=== PATIENT | female | born 2000 | race Caucasian/White ===

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

== ENCOUNTER 2019-04-30 20:17 | Emergency (ER) | payer OTHER ==
[~2019-04-30] VITALS: Ht 154.5 cm; Wt 65.9 kg
[~2019-04-30 20:17] MED LIST changes: +CEFU500T63 PO; +OMEP-280 PO; -OMEP20CA12 PO
--- NOTE | 2019-04-30 21:40 | ED Cough/URI ---
General Chief Complaint: Cough/Cold/Flu Symptoms Stated Complaint: CONGESTED,COUGH Nursing Triage Note: PT AMB TO [facility] 8 WITH COMPLAINT COUGH, CONGESTION FOR OVER A MONTH. STATES SHE WAS RECENTLY AROUND HER DAD WHO HAD THE FLU. STATES IS CONCERNED THAT SHE HAS CONTRACTED THE FLU. Sepsis Screen: No Definite Risk History of Present Illness Date Seen by Provider: Apr 30, 2019 Time Seen by Provider: 21:30 Initial Comments 19-year-old female reports congestion for approximately one month, increased sinus pressure over the last 2-3 days. She did not receive a flu vaccine this. Timing/Duration: intermittent Severity/Quality: dry cough Prior Episodes/Possible Cause: no prior episodes Associated Symptoms: cough, facial pain, nasal congestion Allergies and Home Medications Allergies Coded Allergies: amoxicillin (Verified Allergy, Unknown, 08/20/18) clavulanic acid (Verified Allergy, Unknown, 08/20/18) clindamycin (Verified Allergy, Unknown, 07/14/17) doxycycline (Verified Allergy, Unknown, 07/14/17) Home Medications Cefuroxime Axetil 500 Mg Tablet, 500 MG PO BID Prescribed by: PRINCE GIBSON on 08/20/18 0017 Patient Home Medication List Home Medication List Reviewed: Yes Review of Systems Review of Systems Constitutional: no symptoms reported, see HPI Respiratory: see HPI, cough All Other Systems Reviewed Negative Unless Noted: Yes Past Olmxtrq-Bnadxn-Rpovth Hx Past Med/Social Hx: Reviewed Nursing Past Med/Soc Hx Patient Social History Alcohol Use: Denies Use Recreational Drug Use: No Smoking Status: Never a Smoker 2nd Hand Smoke Exposure: No Recent Foreign Travel: No Contact w/Someone Who Travel: No Recent Infectious Disease Expo: No Recent Hopitalizations: No Immunizations Up To Date Tetanus Booster (TDap): Less than 5yrs PED Vaccines UTD: Yes Seasonal Allergies Seasonal Allergies: No Past Medical History Surgeries: Yes (RIGHT BREAST BIOPSY/BENIGN LUMPECTOMY) Adenoidectomy, Breast, Lumpectomy, Tonsillectomy Respiratory: No Cardiac: No Neurological: Yes (history of tickborne disease, elevated tularemia titer 2016) Reproductive Disorders: No Female Reproductive Disorders: Denies Sexually Transmitted Disease: No HIV/AIDS: No Genitourinary: No Gastrointestinal: No Musculoskeletal: No Endocrine: No HEENT: No Loss of Vision: Denies Hearing Impairment: Denies Cancer: No Psychosocial: Yes Anxiety Integumentary: No Blood Disorders: No Adverse Reaction/Blood Tranf: No (N/A) Family Medical History Hypertension GRANDMOTHER,MATERNAL Thyroid disease 19 MOTHER No Pertinent Family Hx Physical Exam Vital Signs - First Documented 04/30/19 20:51 Temp 37.0 Pulse 92 Resp 20 B/P (MAP) 134/87 (103) Pulse Ox 97 O2 Delivery Room Air Capillary Refill : Less Than 3 Seconds Height: 5'1.00" Weight: 150lbs. 0.0oz. 68.675514zp; 27.00 BMI Method:Stated General Appearance: WD/WN, no apparent distress HEENT: PERRL/EOMI, normal ENT inspection, TMs normal, pharynx normal, other (trace frontal sinus tenderness) Neck: non-tender, full range of motion, supple, normal inspection Respiratory: chest non-tender, lungs clear, normal breath sounds Cardiovascular: normal peripheral pulses, regular rate, rhythm, no murmur Extremities: normal range of motion, non-tender, normal inspection, no pedal edema, no calf tenderness Neurologic/Psychiatric: no motor/sensory deficits, alert, normal mood/affect, oriented x 3 Skin: normal color, warm/dry Progress/Results/Core Measures Suspected Sepsis Recent Fever Within 48 Hours: No Infection Criteria Present: None New/Unexplained Altered Menta: No Sepsis Screen: No Definite Risk SIRS Temperature: Pulse: 92 Respiratory Rate: 20 Blood Pressure 134 /87 Mean: 103 Results/Orders Micro Results Microbiology 04/30/19 Influenza Types A,B Antigen (MADINA) - Final, Complete My Orders Orders - YINA HATHAWAY Influenza A And B Antigens (04/30/19 20:29) Vital Signs/I&O 04/30/19 04/30/19 20:51 21:45 Temp 37.0 37.0 Pulse 92 92 Resp 20 20 B/P (MAP) 134/87 (103) 134/87 (103) Pulse Ox 97 97 O2 Delivery Room Air Capillary Refill : Less Than 3 Seconds Blood Pressure Mean: 103 Departure Impression Primary Impression: Viral upper respiratory illness Disposition: 01 HOME, SELF-CARE Condition: Improved Departure-Patient Inst. Decision time for Depature: 21:40 Referrals: [facility] (PCP/Family) Primary Care Physician Patient Instructions: Cough, Adult (DC), Viral Upper Respiratory Infection, Adult (DC) Add. Discharge Instructions: Increase fluid intake., 16 ounces every 2 hours while awake. Taking multivitamin. Obtain a flu vaccine. Establish care with a primary care provider, follow-up with them if symptoms are not improving or worsen. Alternate between Tylenol 650 mg and ibuprofen 600 mg every 4 hours. Use Afrin nasal spray for 3 days, as directed on the box, then discontinue. Use a Delores pot or Shun Med Sinus irrigation, every 2-4 for sinus congestion. Return to the emergency department for new, urgent health care needs. All discharge instructions reviewed with patient and/or family. Voiced understanding. YINA HATHAWAY Apr 30, 2019 21:40
[2019-04-30 21:45] VITALS: BP 134/87
== END 2019-04-30 21:45 | disposition home or self-care (01) ==
LOC: EDUNIT# 20:17 → ER 20:19
DX: J06.9 Acute upper respiratory infection, unspecified (principal); F41.9 Anxiety disorder, unspecified; Z88.1 Allergy status to other antibiotic agents; Z90.89 Acquired absence of other organs; Z82.49 Family history of ischemic heart disease and other diseases of the circulatory system
CPT/HCPCS: 87804

== ENCOUNTER 2019-05-08 18:20 | Emergency (ER) | payer OTHER ==
[~2019-05-08] VITALS: Ht 154 cm; Wt 70.4 kg
[2019-05-08] MEDS ORDERED: PRD20T PO (20:12)
[2019-05-08] MEDS ORDERED: CEFD300C3 PO (20:12)
--- NOTE | 2019-05-08 20:12 | ED Cough/URI ---
General Chief Complaint: Fever-Adult/Adol Stated Complaint: CONGESTED COUGH,FEVER Nursing Triage Note: FEVER, NAUSEA/VOMITING, AND MIGRAINE Sepsis Screen: No Definite Risk Source: patient Exam Limitations: no limitations History of Present Illness Date Seen by Provider: May 08, 2019 Time Seen by Provider: 19:40 Initial Comments To ER with reports of cough and runny nose sore throat for about a month taken no medications for it. She also reports nausea. Timing/Duration: constant Severity/Quality: productive cough Associated Symptoms: cough, fever/chills, nasal drainage, shortness of breath, sore throat Allergies and Home Medications Allergies Coded Allergies: amoxicillin (Verified Allergy, Unknown, 08/20/18) clavulanic acid (Verified Allergy, Unknown, 08/20/18) clindamycin (Verified Allergy, Unknown, 07/14/17) doxycycline (Verified Allergy, Unknown, 07/14/17) Home Medications Cefdinir 300 Mg Capsule, 300 MG PO BID Prescribed by: MARCELO LOUIS on 05/08/192011 Cefuroxime Axetil 500 Mg Tablet, 500 MG PO BID Prescribed by: PRINCE GIBSON on 08/20/18 0017 Prednisone 20 Mg Tab, 40 MG PO DAILY Prescribed by: MARCELO LOUIS on 05/08/192011 Patient Home Medication List Home Medication List Reviewed: Yes Review of Systems Review of Systems Constitutional: see HPI EENTM: see HPI Respiratory: no symptoms reported Cardiovascular: no symptoms reported Genitourinary: no symptoms reported Musculoskeletal: no symptoms reported Skin: no symptoms reported Psychiatric/Neurological: No Symptoms Reported Hematologic/Lymphatic: No Symptoms Reported Immunological/Allergic: no symptoms reported Past Caugtmp-Rdbsyg-Jlafwv Hx Patient Social History Alcohol Use: Occasionally Uses Recreational Drug Use: No Smoking Status: Never a Smoker 2nd Hand Smoke Exposure: No Recent Foreign Travel: No Contact w/Someone Who Travel: No Recent Infectious Disease Expo: No Recent Hopitalizations: No Physical Abuse: No Sexual Abuse: No Mistreated: No Fear: No Immunizations Up To Date Tetanus Booster (TDap): Less than 5yrs PED Vaccines UTD: Yes Seasonal Allergies Seasonal Allergies: No Past Medical History Surgeries: Yes (RIGHT BREAST BIOPSY/BENIGN LUMPECTOMY) Adenoidectomy, Breast, Lumpectomy, Tonsillectomy Respiratory: No Cardiac: No Neurological: Yes (history of tickborne disease, elevated tularemia titer 2016) Reproductive Disorders: No Female Reproductive Disorders: Denies Sexually Transmitted Disease: No HIV/AIDS: No Genitourinary: No Gastrointestinal: No Musculoskeletal: No Endocrine: No HEENT: No Loss of Vision: Denies Hearing Impairment: Denies Cancer: No Psychosocial: Yes Anxiety Integumentary: No Blood Disorders: No Adverse Reaction/Blood Tranf: No (N/A) Family Medical History Hypertension GRANDMOTHER,MATERNAL Thyroid disease 19 MOTHER No Pertinent Family Hx Physical Exam Vital Signs - First Documented 05/08/19 18:41 Temp 37.2 Pulse 88 Resp 16 B/P (MAP) 138/85 (102) Pulse Ox 98 Capillary Refill : Less Than 3 Seconds Height: 5'1.00" Weight: 150lbs. 0.0oz. 68.971703xc; 29.00 BMI Method:Stated General Appearance: WD/WN, no apparent distress Eyes: Bilateral Eye Normal Inspection, Bilateral Eye PERRL, Bilateral Eye EOMI HEENT: PERRL/EOMI, normal ENT inspection, TMs normal Neck: non-tender, full range of motion, lymphadenopathy (R), lymphadenopathy (L) Respiratory: no respiratory distress, no accessory muscle use Cardiovascular: regular rate, rhythm, no murmur Gastrointestinal: normal bowel sounds, non tender, soft Extremities: normal range of motion, non-tender Neurologic/Psychiatric: alert, normal mood/affect, oriented x 3 Skin: normal color, warm/dry Progress/Results/Core Measures Suspected Sepsis Recent Fever Within 48 Hours: Yes Infection Criteria Present: Suspected New Infection New/Unexplained Altered Menta: No Sepsis Screen: No Definite Risk SIRS Temperature: Pulse: 88 Respiratory Rate: 16 Laboratory Tests 05/08/19 20:15: White Blood Count 7.1 Blood Pressure 138 /85 Mean: 102 Laboratory Tests 05/08/19 20:15: Creatinine 0.75, Platelet Count 338 Results/Orders Lab Results Laboratory Tests Test 05/08/19 19:41 05/08/19 20:15 Range/Units Urine Test NEGATIVE NEGATIVE White Blood Count 7.1 4.3-11.0 10^3/uL Red Blood Count 4.50 4.35-5.85 10^6/uL Hemoglobin 12.1 11.5-16.0 G/DL Hematocrit 37 35-52 % Mean Corpuscular Volume 83 80-99 FL Mean Corpuscular Hemoglobin 27 25-34 PG Mean Corpuscular Hemoglobin Concent 33 32-36 G/DL Red Cell Distribution Width 13.3 10.0-14.5 % Platelet Count 338 130-400 10^3/uL Mean Platelet Volume 9.1 7.4-10.4 FL Neutrophils (%) (Auto) 41 L 42-75 % Lymphocytes (%) (Auto) 47 H 12-44 % Monocytes (%) (Auto) 10 0-12 % Eosinophils (%) (Auto) 1 0-10 % Basophils (%) (Auto) 0 0-10 % Neutrophils # (Auto) 2.9 1.8-7.8 X 10^3 Lymphocytes # (Auto) 3.4 1.0-4.0 X 10^3 Monocytes # (Auto) 0.7 0.0-1.0 X 10^3 Eosinophils # (Auto) 0.1 0.0-0.3 10^3/uL Basophils # (Auto) 0.0 0.0-0.1 10^3/uL Sodium Level 141 135-145 MMOL/L Potassium Level 3.9 3.6-5.0 MMOL/L Chloride Level 107 98-107 MMOL/L Carbon Dioxide Level 23 21-32 MMOL/L Anion Gap 11 5-14 MMOL/L Blood Urea Nitrogen 12 7-18 MG/DL Creatinine 0.75 0.60-1.30 MG/DL Estimat Glomerular Filtration Rate > 60 BUN/Creatinine Ratio 16 Glucose Level 103 70-105 MG/DL Calcium Level 9.3 8.5-10.1 MG/DL C-Reactive Protein High Sensitivity 3.29 H 0.00-0.50 MG/DL Monoscreen NEGATIVE NEGATIVE Micro Results Microbiology 05/08/19 Influenza Types A,B Antigen (MADINA) - Final, Complete My Orders Orders - MARCELO LOUIS MOLD REPAIRER Cbc With Automated Diff (05/08/19 18:59) Hs C Reactive Protein (05/08/19 18:59) Basic Metabolic Panel (05/08/19 18:59) Hcg,Qualitative Urine (05/08/19 18:59) Influenza A And B Antigens (05/08/19 19:02) Ua Culture If Indicated (05/08/19 20:04) Monotest (05/08/19 20:04) Vital Signs/I&O 05/08/19 18:41 Temp 37.2 Pulse 88 Resp 16 B/P (MAP) 138/85 (102) Pulse Ox 98 Capillary Refill : Less Than 3 Seconds Blood Pressure Mean: 102 Departure Impression Primary Impression: Sinusitis Qualified Codes: J01.10 - Acute frontal sinusitis, unspecified Disposition: HOME, SELF-CARE Condition: Stable Departure-Patient Inst. Decision time for Depature: 20:11 Referrals: [facility] [place] ([place]) Primary Care Physician Patient Instructions: Sinusitis in Adults Add. Discharge Instructions: 1. Medication as directed 2. Follow-up with your doctor next week 3. All discharge instructions reviewed with patient and/or family. Voiced understanding. Scripts Prednisone (Prednisone) 20 Mg Tab 40 MG PO DAILY, #8 TAB 0 Refills Prov: MARCELO LOUIS APRN 05/08/19 Cefdinir (Cefdinir) 300 Mg Capsule 300 MG PO BID, #20 CAP Prov: MARCELO LOUIS APRN 05/08/19 MARCELO LOUIS APRN May 08, 2019 20:12
[2019-05-08 20:21] LABS: BASOPHILS % (AUTO) 0 % (0-10); EOSINOPHILS # (AUTO) 0.1 10^3/uL (0.0-0.3); EOSINOPHILS % (AUTO) 1 % (0-10); HEMATOCRIT 37 % (35-52); HEMOGLOBIN 12.1 G/DL (11.5-16.0); LYMPHOCYTES # (AUTO) 3.4 X 10^3 (1.0-4.0); LYMPHOCYTES % (AUTO) 47 % (12-44); MEAN CORPUSCULAR HEMOGLOBIN 27 PG (25-34); MEAN CORPUSCULAR HGB CONC 33 G/DL (32-36); MEAN CORPUSCULAR VOLUME 83 FL (80-99); MEAN PLATELET VOLUME 9.1 FL (7.4-10.4); MONOCYTES # (AUTO) 0.7 X 10^3 (0.0-1.0); MONOCYTES % (AUTO) 10 % (0-12); NEUTROPHILS # (AUTO) 2.9 X 10^3 (1.8-7.8); NEUTROPHILS % (AUTO) 41 % (42-75); PLATELET COUNT 338 10^3/uL (130-400); RED CELL DISTRIBUTION WIDTH 13.3 % (10.0-14.5); WHITE BLOOD COUNT 7.1 10^3/uL (4.3-11.0)
[2019-05-08 20:41] LABS: BUN/CREATININE RATIO 16; CALCIUM 9.3 MG/DL (8.5-10.1); CARBON DIOXIDE 23 MMOL/L (21-32); CHLORIDE 107 MMOL/L (98-107); CREATININE SERUM 0.75 MG/DL (0.60-1.30); GFR ESTIMATED > 60; GLUCOSE 103 MG/DL (70-105); POTASSIUM 3.9 MMOL/L (3.6-5.0); SODIUM 141 MMOL/L (135-145)
[2019-05-08 20:54] VITALS: BP 123/71
== END 2019-05-08 20:54 | disposition home or self-care (01) ==
LOC: EDUNIT# 18:20 → ER 18:22
DX: J32.9 Chronic sinusitis, unspecified (principal); F41.9 Anxiety disorder, unspecified; Z88.0 Allergy status to penicillin; Z88.1 Allergy status to other antibiotic agents; Z90.89 Acquired absence of other organs
CPT/HCPCS: 36415; 80048; 84703; 85025; 86141; 86308; 87804

== ENCOUNTER 2019-06-06 19:55 | Emergency (ER) | payer OTHER ==
[~2019-06-06] VITALS: Ht 157.5 cm; Wt 69.5 kg
[2019-06-06 20:22] LABS: BASOPHILS % (AUTO) 0 % (0-10); EOSINOPHILS % (AUTO) 0 % (0-10); HEMATOCRIT 35 % (35-52); HEMOGLOBIN 11.4 G/DL (11.5-16.0); LYMPHOCYTES # (AUTO) 1.6 X 10^3 (1.0-4.0); LYMPHOCYTES % (AUTO) 20 % (12-44); MEAN CORPUSCULAR HEMOGLOBIN 27 PG (25-34); MEAN CORPUSCULAR HGB CONC 33 G/DL (32-36); MEAN CORPUSCULAR VOLUME 82 FL (80-99); MEAN PLATELET VOLUME 8.8 FL (7.4-10.4); MONOCYTES # (AUTO) 0.4 X 10^3 (0.0-1.0); MONOCYTES % (AUTO) 5 % (0-12); NEUTROPHILS # (AUTO) 5.9 X 10^3 (1.8-7.8); NEUTROPHILS % (AUTO) 75 % (42-75); PLATELET COUNT 329 10^3/uL (130-400); WHITE BLOOD COUNT 7.9 10^3/uL (4.3-11.0)
[2019-06-06] MEDS ORDERED: NS IV 1000 ML 1,000 ML IV SCH (20:23)
[2019-06-06 20:27] LABS: BILIRUBIN,URINE NEGATIVE (NEGATIVE); CLARITY,URINE CLEAR; COLOR,URINE YELLOW; GLUCOSE, URINE (UA) NEGATIVE (NEGATIVE); KETONES,URINE TRACE (NEGATIVE); LEUKOCYTE ESTERASE ,URINE NEGATIVE (NEGATIVE); NITRITE,URINE NEGATIVE (NEGATIVE); PROTEIN,URINE NEGATIVE (NEGATIVE)
[2019-06-06 20:37] LABS: BACTERIA,URINE TRACE /HPF; RBC,URINE 0-2 /HPF; WBC,URINE 0-2 /HPF
[2019-06-06 20:40] LABS: ALANINE AMINOTRANSFERASE 12 U/L (0-55); ALKALINE PHOSPHATASE 79 U/L (40-136); AMYLASE 44 U/L (25-125); BILIRUBIN,TOTAL 0.3 MG/DL (0.1-1.0); BUN/CREATININE RATIO 12; CALCIUM 9.8 MG/DL (8.5-10.1); CARBON DIOXIDE 25 MMOL/L (21-32); CHLORIDE 105 MMOL/L (98-107); CREATININE SERUM 0.81 MG/DL (0.60-1.30); GFR ESTIMATED > 60; GLUCOSE 101 MG/DL (70-105); LIPASE 17 U/L (8-78); POTASSIUM 3.5 MMOL/L (3.6-5.0); SODIUM 139 MMOL/L (135-145); TOTAL PROTEIN 7.7 GM/DL (6.4-8.2)
[2019-06-06] MEDS ORDERED: CATHETER FLUSH 10 ML SYR IV PRN (20:45)
[2019-06-06] MEDS ORDERED: IOHEXOL 350 MG/ML 100 ML (OMNIPAQUE 350) VIAL IV ONE (20:45)
[2019-06-06] MEDS ORDERED: NS 100 ML (IVPB) BAG IV ONE (20:45)
[2019-06-06] MEDS ORDERED: HOLD METFORMIN - RECEIVED CONTRAST 20 ML VIAL IV SCH (20:45)
--- NOTE | 2019-06-06 21:05 | Diagnostic Imaging Report ---
PROCEDURE: CT abdomen and pelvis with contrast, rule out appendicitis. TECHNIQUE: Multiple contiguous axial images were obtained through the abdomen and pelvis after the administration of intravenous contrast. All CT scans use one or more of the following dose optimizing techniques: automated exposure control, MA and/or KvP adjustment based on patient size and exam type or iterative reconstruction. INDICATION: Right lower quadrant abdominal pain with nausea and emesis. COMPARISON: Study of 12/19/2016. FINDINGS: There is mild low-density throughout the liver, indicating steatosis. No focal hepatic or splenic abnormality is identified. Gallbladder, pancreas and adrenal glands are unremarkable. There is no evidence of renal abnormality. No free fluid is seen within the abdomen. There is mild edema and/or inflammation surrounding the cecum and ascending colon. The appendix is present without evidence of significant inflammation or enlargement. Bladder is unopacified but otherwise unremarkable. No other evidence of adverse change. IMPRESSION: Mild edema and/or inflammation involving the cecum and ascending colon which may represent localized colitis. No definite abscess or pneumoperitoneum is identified. The appendix is visualized without evidence of significant enlargement or inflammation. Dictated by: Dictated on workstation # [id number]
[2019-06-06] MEDS ORDERED: HYOSCYAMINE 0.125 MG (LEVSIN) TAB SL ONE (21:15)
--- NOTE | 2019-06-06 21:16 | ED GU-Female ---
General Chief Complaint: Abdominal/GI Problems Stated Complaint: RT SIDE PAIN Nursing Triage Note: Pt amb to room #9 with c/o lower R side abd discomfort, vaginal bleeding, et chills. Pt reports to have had uterine biopsy performed approx 2wks ago. Pt reports to have followed up with OB on 06/05/19 where transvaginal ultrasound et vaginal exam was performed. Pt reports she was prescribed flagyl and difulcan. Pt reports continued pain that increases in severity after eating and when lifting. Nursing Sepsis Screen: No Definite Risk History of Present Illness Date Seen by Provider: Jun 06, 2019 Time Seen by Provider: 20:05 Initial Comments 19-year-old female who has been followed by Dr. Figueroa for the last few weeks regarding abnormal cervical cells, biopsy and persistent vaginal bleeding. She had a pelvic ultrasound and was started on Flagyl and Diflucan FT days ago. She is to report here if her abdominal pain worsen. She is complaining of right lower quadrant pain. She's had no previous appendectomy or cholecystectomy. She has had limited appetite and increased pain when trying to eat. She has been drinking adequate fluids. She denies any nausea or vomiting. She does report a vaginal bleeding has decreased over the last 24 hours. Timing/Duration: intermittent Severity/Quality: moderate Location: RLQ Radiation: none Associated Symptoms: abdominal pain; No dysuria, No fever/chills, No loss of bladder control, No lower back pain, No nausea/vomiting, No urinary frequency Allergies and Home Medications Allergies Coded Allergies: amoxicillin (Verified Allergy, Unknown, 08/20/18) clavulanic acid (Verified Allergy, Unknown, 08/20/18) clindamycin (Verified Allergy, Unknown, 07/14/17) doxycycline (Verified Allergy, Unknown, 07/14/17) Home Medications Cefdinir 300 Mg Capsule, 300 MG PO BID Prescribed by: MARCELO LOUIS on 05/08/192011 Cefuroxime Axetil 500 Mg Tablet, 500 MG PO BID Prescribed by: PRINCE GIBSON on 08/20/1816 Hyoscyamine Sulfate 0.125 Mg Tab.subl, 0.125 MG SL PRN PRN for PAIN-MODERATE (5- 7) Prescribed by: YINA HATHAWAY on 06/06/192120 Prednisone 20 Mg Tab, 40 MG PO DAILY Prescribed by: MARCELO LOUIS on 05/08/192011 Patient Home Medication List Home Medication List Reviewed: Yes Review of Systems Review of Systems Constitutional: no symptoms reported, see HPI Gastrointestinal: RLQ, see HPI, abdominal pain (RLQ); No diarrhea; loss of appetite; No nausea, No vomiting Genitourinary: see HPI, other : No All Other Systemes Reviewed Negative Unless Noted: Yes Past Eydqeet-Ivuyen-Rbttfg Hx Past Med/Social Hx: Reviewed Nursing Past Med/Soc Hx Patient Social History Alcohol Use: Rarely Uses Recreational Drug Use: No Smoking Status: Never a Smoker 2nd Hand Smoke Exposure: No Recent Foreign Travel: No Contact w/Someone Who Travel: No Recent Infectious Disease Expo: No Recent Hopitalizations: No Immunizations Up To Date Tetanus Booster (TDap): Less than 5yrs PED Vaccines UTD: Yes Seasonal Allergies Seasonal Allergies: No Past Medical History Surgeries: Yes (RIGHT BREAST BIOPSY/BENIGN LUMPECTOMY) Adenoidectomy, Breast, Lumpectomy, Tonsillectomy Respiratory: No Cardiac: No Neurological: Yes (history of tickborne disease, elevated tularemia titer 2016) Reproductive Disorders: No Female Reproductive Disorders: Denies Sexually Transmitted Disease: No HIV/AIDS: No Genitourinary: No Gastrointestinal: No Musculoskeletal: No Endocrine: No HEENT: No Loss of Vision: Denies Hearing Impairment: Denies Cancer: No Psychosocial: Yes Anxiety Integumentary: No Blood Disorders: No Adverse Reaction/Blood Tranf: No (N/A) Family Medical History Hypertension GRANDMOTHER,MATERNAL Thyroid disease 19 MOTHER No Pertinent Family Hx Physical Exam Vital Signs Vital Signs - First Documented 06/06/19 20:00 Temp 36.8 Pulse 100 Resp 17 B/P (MAP) 117/82 (94) Pulse Ox 100 O2 Delivery Room Air Capillary Refill : Less Than 3 Seconds Height, Weight, BMI Height: 5'1.00" Weight: 150lbs. 0.0oz. [id number]; 28.00 BMI Method:Stated General Appearance: WD/WN, no apparent distress HEENT: PERRL/EOMI, normal ENT inspection, TMs normal, pharynx normal Neck: non-tender, full range of motion, supple, normal inspection Cardiovascular: normal peripheral pulses, regular rate, rhythm Respiratory: chest non-tender, lungs clear, normal breath sounds Gastrointestinal: normal bowel sounds, soft; No distended, No guarding, No rebound; tenderness (exquisite tenderness in the right lower and upper quadrant. Negative Jin sign.); No mass; other (negative heel tap and psoas sign.) Extremities: normal range of motion, non-tender, normal inspection, normal capillary refill Neurologic/Psychiatric: no motor/sensory deficits, alert, normal mood/affect, oriented x 3 Progress/Results/Core Measures Suspected Sepsis Recent Fever Within 48 Hours: No Infection Criteria Present: Documented Infection New/Unexplained Altered Menta: No Sepsis Screen: No Definite Risk SIRS Temperature: Pulse: 100 Respiratory Rate: 17 Laboratory Tests 06/06/19 20:11: White Blood Count 7.9 Blood Pressure 117 /82 Mean: 94 Laboratory Tests 06/06/19 20:11: Creatinine 0.81, Platelet Count 329, Total Bilirubin 0.3 Results/Orders Lab Results Laboratory Tests Test 06/06/19 20:11 06/06/19 20:15 Range/Units White Blood Count 7.9 4.3-11.0 10^3/uL Red Blood Count 4.28 L 4.35-5.85 10^6/uL Hemoglobin 11.4 L 11.5-16.0 G/DL Hematocrit 35 35-52 % Mean Corpuscular Volume 82 80-99 FL Mean Corpuscular Hemoglobin 27 25-34 PG Mean Corpuscular Hemoglobin Concent 33 32-36 G/DL Red Cell Distribution Width 13.0 10.0-14.5 % Platelet Count 329 130-400 10^3/uL Mean Platelet Volume 8.8 7.4-10.4 FL Neutrophils (%) (Auto) 75 42-75 % Lymphocytes (%) (Auto) 20 12-44 % Monocytes (%) (Auto) 5 0-12 % Eosinophils (%) (Auto) 0 0-10 % Basophils (%) (Auto) 0 0-10 % Neutrophils # (Auto) 5.9 1.8-7.8 X 10^3 Lymphocytes # (Auto) 1.6 1.0-4.0 X 10^3 Monocytes # (Auto) 0.4 0.0-1.0 X 10^3 Eosinophils # (Auto) 0.0 0.0-0.3 10^3/uL Basophils # (Auto) 0.0 0.0-0.1 10^3/uL Sodium Level 139 135-145 MMOL/L Potassium Level 3.5 L 3.6-5.0 MMOL/L Chloride Level 105 98-107 MMOL/L Carbon Dioxide Level 25 21-32 MMOL/L Anion Gap 9 5-14 MMOL/L Blood Urea Nitrogen 10 7-18 MG/DL Creatinine 0.81 0.60-1.30 MG/DL Estimat Glomerular Filtration Rate > 60 BUN/Creatinine Ratio 12 Glucose Level 101 70-105 MG/DL Calcium Level 9.8 8.5-10.1 MG/DL Corrected Calcium 9.8 8.5-10.1 MG/DL Total Bilirubin 0.3 0.1-1.0 MG/DL Aspartate Amino Transf (AST/SGOT) 11 5-34 U/L Alanine Aminotransferase (ALT/SGPT) 12 0-55 U/L Alkaline Phosphatase 79 40-136 U/L Total Protein 7.7 6.4-8.2 GM/DL Albumin 4.0 3.2-4.5 GM/DL Amylase Level 44 25-125 U/L Lipase 17 8-78 U/L Urine Color YELLOW Urine Clarity CLEAR Urine pH 6.0 5-9 Urine Specific [place] >=1.030 1.016-1.022 Urine Protein NEGATIVE NEGATIVE Urine Glucose (UA) NEGATIVE NEGATIVE Urine Ketones TRACE H NEGATIVE Urine Nitrite NEGATIVE NEGATIVE Urine Bilirubin NEGATIVE NEGATIVE Urine Urobilinogen 0.2 < = 1.0 MG/DL Urine Leukocyte Esterase NEGATIVE NEGATIVE Urine RBC (Auto) 1+ H NEGATIVE Urine RBC 0-2 /HPF Urine WBC 0-2 /HPF Urine Squamous Epithelial Cells 2-5 /HPF Urine Crystals NONE /LPF Urine Bacteria TRACE /HPF Urine Casts NONE /LPF Urine Mucus SMALL H /LPF Urine Culture Indicated NO My Orders Orders - YINA HATHAWAY Ua Culture If Indicated (06/06/19 19:57) Urine Bedside (06/06/19 19:57) Amylase (06/06/19 20:16) Cbc With Automated Diff (06/06/19 20:16) Comprehensive Metabolic Panel (06/06/19 20:16) Lipase (06/06/19 20:16) Ed Iv/Invasive Line Start (06/06/19 20:23) Ns Iv 1000 Ml (Sodium Chloride 0.9%) (06/06/19 20:23) Ct Abd/Pelv W (Appendicitis) (06/06/19 20:32) Iohexol Injection (Omnipaque 350 Mg/Ml 1 (06/06/19 20:45) Received Contrast (Hold Metformin- Contr (06/06/19 20:45) Sodium Chloride Flush (Catheter Flush Sy (06/06/19 20:45) Ns (Ivpb) (Sodium Chloride 0.9% Ivpb Bag (06/06/19 20:45) Hyoscyamine Sl Tablet (Levsin Sl Tablet) (06/06/19 21:15) Rx-Hyoscyamine Tab (Rx-Levsin Sl) (06/06/19 21:29) Medications Given in ED Current Medications Medications Dose Ordered Sig/Brittney Route Start Time Stop Time Status Last Admin Dose Admin Hyoscyamine Sulfate 0.125 mg ONCE ONCE SL 06/06/19 21:15 06/06/19 21:16 DC 06/06/19 21:25 0.125 MG Iohexol 100 ml ONCE ONCE IV 06/06/19 20:45 06/06/19 20:46 DC 06/06/19 20:48 87 ML Sodium Chloride 10 ml NEEDED PRN IV 06/06/19 20:45 06/06/19 20:48 10 ML Sodium Chloride 100 ml ONCE ONCE IV 06/06/19 20:45 06/06/19 20:46 DC 06/06/19 20:48 80 ML Vital Signs/I&O 06/06/19 20:00 Temp 36.8 Pulse 100 Resp 17 B/P (MAP) 117/82 (94) Pulse Ox 100 O2 Delivery Room Air Capillary Refill : Less Than 3 Seconds Blood Pressure Mean: 94 Progress Note : Time: 20:05 Progress Note Patient seen and evaluated, will obtain labs, normal liter per IV, will obtain CT to determine if the appendix or mesenteric adenitis or other pathology causing her symptoms. will maintain NPO. 2049 Labs essentially WNL. WBC 7.9. Awaiting CT results. 2099 CT shows colitis in the descending colon, no other significant abnormalities. Will give Levsin SL. 2114 discharge instructions and return precautions reviewed with patient and her parents. All questions answered. Diagnostic Imaging Diagonstic Imaging: CT Comments NAME: АЛЕКСАНДРCAROLYNMARY CHAO REC#: [id number] PT STATUS: REG ER : 2000 PHYSICIAN: YINA HATHAWAY PHYSICIAN OFFICE CLIN ASST ADMIT DATE: 06/06/19/ER Draft Date of Exam:06/06/19 CT ABD/PELV W (APPENDICITIS) PROCEDURE: CT abdomen and pelvis with contrast, rule out appendicitis. TECHNIQUE: Multiple contiguous axial images were obtained through the abdomen and pelvis after the administration of intravenous contrast. All CT scans use one or more of the following dose optimizing techniques: automated exposure control, MA and/or KvP adjustment based on patient size and exam type or iterative reconstruction. INDICATION: Right lower quadrant abdominal pain with nausea and emesis. COMPARISON: Study of 12/19/2016. FINDINGS: There is mild low-density throughout the liver, indicating steatosis. No focal hepatic or splenic abnormality is identified. Gallbladder, pancreas and adrenal glands are unremarkable. There is no evidence of renal abnormality. No free fluid is seen within the abdomen. There is mild edema and/or inflammation surrounding the cecum and ascending colon. The appendix is present without evidence of significant inflammation or enlargement. Bladder is unopacified but otherwise unremarkable. No other evidence of adverse change. IMPRESSION: Mild edema and/or inflammation involving the cecum and ascending colon which may represent localized colitis. No definite abscess or pneumoperitoneum is identified. The appendix is visualized without evidence of significant enlargement or inflammation. Dictated on workstation # [id number] Dict: 06/06/19 2100 Trans: 06/06/192104 [facility] [id number] Interpreted by: EYAD SLTAER MD Electronically signed by: Departure Impression Primary Impression: Colitis Additional Impression: Pain, abdominal, RLQ Disposition: 01 HOME, SELF-CARE Condition: Improved Departure-Patient Inst. Decision time for Depature: 21:15 Referrals: [facility] [place] ([place]/Family) Primary Care Physician NIMESH FIGUEROA MD Patient Instructions: Colitis (DC) Add. Discharge Instructions: Clear liquid diet for the next 12 hours, then bland diet as tolerated. Follow-up with Dr. Figueroa by her primary care provider if symptoms are not improving or worsen. Continue to take the Flagyl as prescribed. Use the Levsin as needed for abdominal pain. You may alternate between Tylenol 650 mg and ibuprofen 600 mg every 4 hours for pain. Rest. Return to the emergency department for new, urgent health care needs. All discharge instructions reviewed with patient and/or family. Voiced understanding. Scripts Hyoscyamine Sulfate (Levsin-Sl) 0.125 Mg Tab.subl 0.125 MG SL PRN PRN for PAIN-MODERATE (5-7), #12 TAB 0 Refills Prov: YINA HATHAWAY 06/06/19 Copy Copies To 1: NIMESH FIGUEROA MD, AMY ARNP Jun 06, 2019 21:16
[2019-06-06] MEDS ORDERED: HYOS0.1283 SL (21:21)
[2019-06-06] MEDS ORDERED: RX-HYOSCYAMINE 0.125 MG SL (LEVSIN) PPK#6 SL STA (21:29)
[2019-06-06] MEDS ORDERED: HYDROcodone/APAP 5 MG/325 MG (LORTAB) TAB PO ONE (21:30)
[2019-06-06 21:49] VITALS: BP 116/78
== END 2019-06-06 21:49 | disposition home or self-care (01) ==
LOC: EDUNIT# 19:55 → ER 19:56
DX: K52.9 Noninfective gastroenteritis and colitis, unspecified (principal); Z88.0 Allergy status to penicillin; Z88.1 Allergy status to other antibiotic agents; Z82.49 Family history of ischemic heart disease and other diseases of the circulatory system
CPT/HCPCS: 36415; 74177; 80053; 81000; 82150; 83690; 84703; 85025

== ENCOUNTER 2020-03-25 21:47 | Emergency (ER) | payer BC, OTHER ==
[~2020-03-25] VITALS: Ht 157.4 cm; Wt 69.3 kg
[~2020-03-25 21:47] MED LIST changes: +HYOS0.1283 SL; -OMEP-280 PO; +OMEP20CA18 PO
[2020-03-25 22:05] VITALS: BP 121/83
--- NOTE | 2020-03-25 22:32 | ED General ---
General Chief Complaint: General Problems/Pain Stated Complaint: SOA/LIGHTHEADED/DIZZY Nursing Triage Note: Pt c/o SOB, dizziness, weakness, and reports seeing gold specks. 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 Nursing Sepsis Screen: No Definite Risk Source of Information: Patient Exam Limitations: No Limitations History of Present Illness Date Seen by Provider: Mar 25, 2020 Time Seen by Provider: 22:14 Initial Comments Patient presents ER by private conveyance with chief complaint that she ate some spaghetti tonight even though she no she has now for gallop allergy and was afraid she might be having allergic reaction. She started experiencing shortness of breath while sitting talking with her friends. She's not having difficulty swallowing, breathing or swelling in her tongue or throat. She says her allergic reactions did not occur this week. She's had no rash or itching. She takes control and her last missed her period ended last week. She is also on Lexapro. Allergies and Home Medications Allergies Coded Allergies: amoxicillin (Verified Allergy, Unknown, 08/20/18) clavulanic acid (Verified Allergy, Unknown, 08/20/18) clindamycin (Verified Allergy, Unknown, 07/14/17) doxycycline (Verified Allergy, Unknown, 07/14/17) Home Medications Cefdinir 300 Mg Capsule, 300 MG PO BID Prescribed by: MARCELO LOUIS on 05/08/192011 Cefuroxime Axetil 500 Mg Tablet, 500 MG PO BID Prescribed by: PRINCE GIBSON on 08/20/18 0017 Hyoscyamine Sulfate 0.125 Mg Tab.subl, 0.125 MG SL PRN PRN for PAIN-MODERATE (5- 7) Prescribed by: YINA HATHAWAY on 06/06/192120 Prednisone 20 Mg Tab, 40 MG PO DAILY Prescribed by: MARCELO LOUIS on 05/08/192011 Patient Home Medication List Home Medication List Reviewed: Yes Review of Systems Review of Systems Constitutional: No chills, No diaphoresis EENTM: No ear discharge, No ear pain Respiratory: No cough, No short of breath Cardiovascular: No chest pain, No palpitations Gastrointestinal: No abdominal pain, No nausea Genitourinary: No discharge, No dysuria All Other Systems Reviewed Negative Unless Noted: Yes Past Yrlurpl-Dztoml-Suebfi Hx Patient Social History Alcohol Use: Occasionally Uses Recreational Drug Use: No 2nd Hand Smoke Exposure: No Recent Foreign Travel: No Contact w/Someone Who Travel: No Recent Infectious Disease Expo: No Recent Hopitalizations: No Physical Abuse: No Sexual Abuse: No Mistreated: No Fear: No Immunizations Up To Date Tetanus Booster (TDap): Less than 5yrs PED Vaccines UTD: Yes Seasonal Allergies Seasonal Allergies: No Past Medical History Surgeries: Yes (RIGHT BREAST BIOPSY/BENIGN LUMPECTOMY) Adenoidectomy, Breast, Lumpectomy, Tonsillectomy Respiratory: No Cardiac: No Neurological: Yes (history of tickborne disease, elevated tularemia titer 2016) Reproductive Disorders: No Female Reproductive Disorders: Denies Sexually Transmitted Disease: No HIV/AIDS: No Genitourinary: No Gastrointestinal: No Musculoskeletal: No Endocrine: No HEENT: No Loss of Vision: Denies Hearing Impairment: Denies Cancer: No Psychosocial: Yes Anxiety Integumentary: No Blood Disorders: No Adverse Reaction/Blood Tranf: No (N/A) Family Medical History Hypertension GRANDMOTHER,MATERNAL Thyroid disease 19 MOTHER No Pertinent Family Hx Physical Exam Vital Signs Vital Signs - First Documented 03/25/20 22:05 Temp 37.2 Pulse 88 Resp 20 B/P (MAP) 121/83 (96) Pulse Ox 99 O2 Delivery Room Air Capillary Refill : Less Than 3 Seconds Height, Weight, BMI Height: 5'1.00" Weight: 150lbs. 0.0oz. [id number]; 27.00 BMI Method:Stated General Appearance: No Apparent Distress, WD/WN Eyes: Bilateral Eye Normal Inspection, Bilateral Eye PERRL, Bilateral Eye EOMI HEENT: PERRL/EOMI, TMs Normal, Normal ENT Inspection, Pharynx Normal, Moist Mucous Membranes Neck: Full Range of Motion, Normal Inspection Respiratory: Lungs Clear, Normal Breath Sounds, No Accessory Muscle Use, No Respiratory Distress Cardiovascular: Regular Rate, Rhythm, No Edema, Normal Peripheral Pulses Neurologic/Psychiatric: Alert, Oriented x3, No Motor/Sensory Deficits Skin: Normal Color, Warm/Dry Progress/Results/Core Measures Suspected Sepsis Recent Fever Within 48 Hours: No Infection Criteria Present: None New/Unexplained Altered Menta: No Sepsis Screen: No Definite Risk SIRS Temperature: Pulse: 88 Respiratory Rate: 20 Blood Pressure 121 /83 Mean: 96 Results/Orders Vital Signs/I&O 12/2/20 22:05 Temp 37.2 Pulse 88 Resp 20 B/P (MAP) 121/83 (96) Pulse Ox 99 O2 Delivery Room Air Capillary Refill : Less Than 3 Seconds Blood Pressure Mean: 96 Progress Note : Time: 22:30 Progress Note Patient has aseptic vital signs and clear lung sounds and no evidence of anaphylaxis. After a short observation period and discussing with the patient we did offer to do more workup but she agrees that this is probably not necessary. We suspect that she is having a little panic related to her fear of an allergic reaction related to eating hamburger tonight. Good return precautions were given. Departure Impression Primary Impression: Anxiety with limited-symptom attacks Disposition: HOME, SELF-CARE Condition: Stable Departure-Patient Inst. Decision time for Depature: 22:31 Referrals: [facility] [place]) Primary Care Physician Patient Instructions: Anxiety, Adult (DC) Add. Discharge Instructions: Take another Benadryl if you're having difficulty sleeping tonight. Return to the ER promptly if you develop swelling in your tongue, throat, difficulty swallowing or worsening shortness of air. All discharge instructions reviewed with patient and/or family. Voiced understanding. RADHA GARRIDO Mar 25, 2020 22:32
== END 2020-03-25 22:35 | disposition home or self-care (01) ==
LOC: EDUNIT# 21:47 → ER 21:48
DX: F41.9 Anxiety disorder, unspecified (principal); Z82.49 Family history of ischemic heart disease and other diseases of the circulatory system; Z88.1 Allergy status to other antibiotic agents; Z79.52 Long term (current) use of systemic steroids
CPT/HCPCS: 99281

== ENCOUNTER 2020-05-06 01:39 | Emergency (ER) | payer BC ==
[~2020-05-06] VITALS: Ht 157 cm; Wt 75.0 kg
[2020-05-06 02:15] LABS: BASOPHILS % (AUTO) 0 % (0-10); EOSINOPHILS # (AUTO) 0.1 10^3/uL (0.0-0.3); EOSINOPHILS % (AUTO) 2 % (0-10); HEMATOCRIT 38 % (35-52); HEMOGLOBIN 12.3 g/dL (11.5-16.0); LYMPHOCYTES % (AUTO) 46 % (12-44); MEAN CORPUSCULAR HEMOGLOBIN 27 pg (25-34); MEAN CORPUSCULAR HGB CONC 32 g/dL (32-36); MEAN CORPUSCULAR VOLUME 85 fL (80-99); MEAN PLATELET VOLUME 9.5 fL (9.0-12.2); MONOCYTES # (AUTO) 0.6 10^3/uL (0.0-1.0); MONOCYTES % (AUTO) 9 % (0-12); NEUTROPHILS # (AUTO) 2.6 10^3/uL (1.8-7.8); NEUTROPHILS % (AUTO) 40 % (42-75); PLATELET COUNT 245 10^3/uL (130-400); WHITE BLOOD COUNT 6.5 10^3/uL (4.3-11.0)
--- NOTE | 2020-05-06 02:27 | ED Cough/URI ---
General Chief Complaint: Cough/Cold/Flu Symptoms Stated Complaint: WEAK,SOB,HARD TO MOVE,POS TEMP,COUGH Nursing Triage Note: COVID + /, C/O GENERALIZED BODY ACHE, SORETHROAT, NASAL CONGESTION X2 WEEKS. REPORTS SOA WORSE TONIGHT X30 MIN. Sepsis Screen: No Definite Risk Source: patient History of Present Illness Date Seen by Provider: May 06, 2020 Time Seen by Provider: 01:55 Initial Comments PT ARRIVES VIA POV FROM HOME C/O GENERALIZED BODY ACHES C/O SORE THROAT C/O NASAL CONGESTION HAS HAD NON-PRODUCTIVE COUGH AND OCCASIONAL SHORTNESS OF BREATH C/O LOSS OF TASTE AND SMELL C/O NAUSEA, NO VOMITING C/O DIARRHEA--X 2 EPISODES TODAY C/O FATIGUE C/O HEADACHE HAS NOT CHECKED TEMP--DOES NOT HAVE A THERMOMETER SYMPTOMS X 2 WEEKS STATES SHORTNESS OF BREATH WORSE FOR THE LAST 30 MINUTES. SEEN AT [facility] 05/05/20 FOR THIS PROBLEM AND TESTED + FOR COVID- 19. FLU TEST WAS NEGATIVE, PER PT. GIVEN RX FOR DECADRON 6 MG X 10 DAYS, AND ZITHROMAX Z-PACK--HAS NOT PICKED UP RX'S PT WAS GIVEN RX FOR ALBUTEROL INHALER ON 04/26/20--STATES IT IS NOT HELPING--DOES NOT HAVE A SPACER WAS GIVEN RX FOR BIAXIN/CLARITHROMYCIN 500 MG BID X 10 DAYS ON 04/30/20--DID NOT TAKE STATES SHE WAS GIVEN RX FOR A COUGH SYRUP, BUT IS NOT HELPING--THIS IS NOT LISTED ON MED RECONCILIATION HAD BEEN SEEN AT BOTH [facility] AND [facility] ON THOSE PRIOR VISITS AND COVID-19 TESTS WERE NEGATIVE THEN. HAS ANOTHER APPOINTMENT TOMORROW AT [facility] FOR RECHECK HAS NOT TAKEN ANYTHING ELSE FOR SYMPTOMS AT ANY TIME NO HISTORY OF RESPIRATORY PROBLEMS OR CHRONIC ILLNESSES LIVES ALONE BOYFRIEND'S BROTHER WAS SICK AT [facility] AND TESTED + FOR COVID-19 SHORTLY AFTER THAT LMP 04/17/20--NORMAL ON OCP'S PCP: [facility] Allergies and Home Medications Allergies Coded Allergies: amoxicillin (Verified Allergy, Unknown, 08/20/18) clavulanic acid (Verified Allergy, Unknown, 08/20/18) clindamycin (Verified Allergy, Unknown, 07/14/17) doxycycline (Verified Allergy, Unknown, 07/14/17) Home Medications Benzonatate 100 Mg Capsule, 200 MG PO TID Prescribed by: PRINCE GIBSON on 05/06/20256 Cefdinir 300 Mg Capsule, 300 MG PO BID Prescribed by: MARCELO LOUIS on 05/08/192011 Cefuroxime Axetil 500 Mg Tablet, 500 MG PO BID Prescribed by: PRINCE GIBSON on 08/20/18 001 Fluticasone Propionate 9.9 Ml [place].susp, 2 SPRAY NS DAILY 2 SPRAYS PER NOSTRIL DAILY X 2 DAYS THEN 1 SPRAY DAILY Prescribed by: PRINCE GIBSON on 05/06/20256 Fluticasone/Salmeterol 1 Each Blst.w.dev, 1 EACH IH BID Prescribed by: PRINCE GIBSON on 05/06/20256 Hyoscyamine Sulfate 0.125 Mg Tab.subl, 0.125 MG SL PRN PRN for PAIN-MODERATE (5-7) Prescribed by: YINA HATHAWAY on 06/06/192120 Loratadine/Pseudoephedrine 1 Each Tab.er.12h, 1 EACH PO BID Prescribed by: PRINCE GIBSON on 05/06/20256 Ondansetron 4 Mg Tab.rapdis, 4 MG PO Q4H Prescribed by: PRINCE GIBSON on 05/06/20256 Prednisone 20 Mg Tab, 40 MG PO DAILY Prescribed by: MARCELO LOUIS on 05/08/192011 Patient Home Medication List Home Medication List Reviewed: Yes Review of Systems Review of Systems Constitutional: see HPI, malaise, weakness EENTM: see HPI, nose congestion, throat pain Respiratory: see HPI, cough, short of breath Cardiovascular: no symptoms reported Gastrointestinal: see HPI; No abdominal pain; diarrhea, loss of appetite, nausea; No vomiting Genitourinary: no symptoms reported Musculoskeletal: see HPI (BODY ACHES) Skin: no symptoms reported; No rash Psychiatric/Neurological: See HPI, Headache Hematologic/Lymphatic: No Symptoms Reported Immunological/Allergic: no symptoms reported Past Msedkyc-Wgihwi-Ndvewt Hx Past Med/Social Hx: Reviewed and Corrections made Patient Social History Alcohol Use: Occasionally Uses Drug of Choice: THC Smoking Status: Never a Smoker 2nd Hand Smoke Exposure: No Recent Infectious Disease Expo: No Recent Hopitalizations: No Immunizations Up To Date Tetanus Booster (TDap): Less than 5yrs PED Vaccines UTD: Yes Seasonal Allergies Seasonal Allergies: No Past Medical History Surgeries: Yes (RIGHT BREAST BIOPSY/BENIGN LUMPECTOMY) Adenoidectomy, Breast, Lumpectomy, Tonsillectomy Respiratory: No Cardiac: No Neurological: Yes (history of tickborne disease, elevated tularemia titer 2016) : No Last Menstrual Period: Apr 17, 2020 Reproductive Disorders: No Female Reproductive Disorders: Denies Sexually Transmitted Disease: No HIV/AIDS: No Genitourinary: No Gastrointestinal: No Musculoskeletal: No Endocrine: No HEENT: No Loss of Vision: Denies Hearing Impairment: Denies Cancer: No Psychosocial: Yes Anxiety Integumentary: No Blood Disorders: No Adverse Reaction/Blood Tranf: No (N/A) Family Medical History Hypertension GRANDMOTHER,MATERNAL Thyroid disease 19 MOTHER No Pertinent Family Hx Physical Exam Vital Signs - First Documented 05/06/20 01:45 Temp 36.4 Pulse 91 Resp 18 B/P (MAP) 146/98 (114) Pulse Ox 98 O2 Delivery Room Air Capillary Refill : Less Than 3 Seconds Height: 5'1.00" Weight: 150lbs. 0.0oz. 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, no motor/sensory deficits, alert, normal mood/affect, oriented x 3 Skin: normal color, warm/dry; No rash Progress/Results/Core Measures Suspected Sepsis Recent Fever Within 48 Hours: No Infection Criteria Present: Documented Infection New/Unexplained Altered Menta: No Sepsis Screen: No Definite Risk SIRS Temperature: Pulse: 91 Respiratory Rate: 18 Laboratory Tests 05/06/20 02:05: White Blood Count 6.5 Blood Pressure 146 /98 Mean: 114 Laboratory Tests 05/06/20 02:05: Creatinine 0.73, Platelet Count 245, Total Bilirubin 0.2 Results/Orders Lab Results Laboratory Tests Test 05/06/20 02:00 05/06/20 02:05 Range/Units Group A Streptococcus Screen NEGATIVE NEGATIVE White Blood Count 6.5 4.3-11.0 10^3/uL Red Blood Count 4.49 3.80-5.11 10^6/uL Hemoglobin 12.3 11.5-16.0 g/dL Hematocrit 38 35-52 % Mean Corpuscular Volume 85 80-99 fL Mean Corpuscular Hemoglobin 27 25-34 pg Mean Corpuscular Hemoglobin Concent 32 32-36 g/dL Red Cell Distribution Width 12.8 10.0-14.5 % Platelet Count 245 130-400 10^3/uL Mean Platelet Volume 9.5 9.0-12.2 fL Immature Granulocyte % (Auto) 2 % Neutrophils (%) (Auto) 40 L 42-75 % Lymphocytes (%) (Auto) 46 H 12-44 % Monocytes (%) (Auto) 9 0-12 % Eosinophils (%) (Auto) 2 0-10 % Basophils (%) (Auto) 0 0-10 % Neutrophils # (Auto) 2.6 1.8-7.8 10^3/uL Lymphocytes # (Auto) 3.0 1.0-4.0 10^3/uL Monocytes # (Auto) 0.6 0.0-1.0 10^3/uL Eosinophils # (Auto) 0.1 0.0-0.3 10^3/uL Basophils # (Auto) 0.0 0.0-0.1 10^3/uL Immature Granulocyte # (Auto) 0.1 0.0-0.1 10^3/uL Sodium Level 140 135-145 MMOL/L Potassium Level 4.1 3.6-5.0 MMOL/L Chloride Level 104 98-107 MMOL/L Carbon Dioxide Level 24 21-32 MMOL/L Anion Gap 12 5-14 MMOL/L Blood Urea Nitrogen 11 7-18 MG/DL Creatinine 0.73 0.60-1.30 MG/DL Estimat Glomerular Filtration Rate > 60 BUN/Creatinine Ratio 15 Glucose Level 100 70-105 MG/DL Calcium Level 8.8 8.5-10.1 MG/DL Corrected Calcium 8.8 8.5-10.1 MG/DL Total Bilirubin 0.2 0.1-1.0 MG/DL Aspartate Amino Transf (AST/SGOT) 19 5-34 U/L Alanine Aminotransferase (ALT/SGPT) 25 0-55 U/L Alkaline Phosphatase 80 40-136 U/L Total Protein 7.1 6.4-8.2 GM/DL Albumin 4.0 3.2-4.5 GM/DL Serum Test, Qualitative NEGATIVE NEGATIVE Monoscreen NEGATIVE NEGATIVE My Orders Orders - PRINCE GIBSON DO Rapid Strep A Screen (05/06/20 02:01) Chest 1 View, Ap/Pa Only (05/06/20 02:01) Cbc With Automated Diff (05/06/20 02:05) Comprehensive Metabolic Panel (05/06/20 02:05) Hcg,Qualitative Serum (05/06/20 02:05) Monotest (05/06/20 02:05) Procalcitonin (Pct) (05/06/20 02:05) Vital Signs/I&O 05/06/20 05/06/20 05/06/20 01:45 01:45 03:00 Temp 36.4 36.5 Pulse 91 91 Resp 18 16 B/P (MAP) 146/98 (114) 113/96 (114) Pulse Ox 98 100 O2 Delivery Room Air Room Air Room Air Capillary Refill : Less Than 3 Seconds Blood Pressure Mean: 114 Progress Note : Progress Note O2 SATS 99-100% ON ROOM AIR PULSE AND BP NORMAL NO DYSPNEA, NO SIGNIFICANT COUGH AND NO HYPOXIA AT ANY TIME DURING ER STAY GIVEN A SPACER AND INSTRUCTED ON USE WITH PT'S OWN ALBUTEROL INHALER--2 PUFFS GIVEN IN ER. Diagnostic Imaging Comments CXR--NO ACUTE PROCESS, PENDING RADIOLOGIST REVIEW Reviewed: Reviewed by Me Departure Impression Primary Impression: COVID-19 virus infection Disposition: 01 HOME, SELF-CARE Condition: Stable Departure-Patient Inst. Referrals: [facility] (PCP/Family) Primary Care Physician Patient Instructions: Preventing the Spread of an Infectious Disease, Coronavirus Disease 2019 (COVID-19) ED Add. Discharge Instructions: LOTS OF CLEAR LIQUIDS--WATER, BROTH, JELLO, GATORADE TYLENOL 1 GRAM/ MOTRIN 800 MG 4 TIMES A DAY FOR PAIN OR FEVER GET YOUR PRESCRIPTIONS FOR DECADRON AND ZITHROMAX FILLED THIS MORNING AND TAKE PRESCRIBED USE ALBUTEROL INHALER 2 PUFFS EVERY 4 HOURS NEEDED FOR BREATHING FOLLOW UP WITH [facility] AND/OR [facility] NEEDED RETURN TO ER IF YOU HAVE SEVERE DIFFICULTY BREATHING QUARANTINE FOR 2 WEEKS All discharge instructions reviewed with patient and/or family. Voiced understanding. Scripts Fluticasone/Salmeterol (Advair 250-50 Diskus) 1 Each Blst.w.dev 1 EACH IH BID, #1 EA Prov: PRINCE GIBSON DO 05/06/20 Fluticasone Propionate (Flonase Allergy Relief) 9.9 Ml [place].susp 2 SPRAY NS DAILY, #1 EACH 2 SPRAYS PER NOSTRIL DAILY X 2 DAYS THEN 1 SPRAY DAILY Prov: PRINCE GIBSON DO 05/06/20 Loratadine/Pseudoephedrine (Claritin-D 12 Hour Tablet) 1 Each Tab.er.12h 1 EACH PO BID, #20 TAB Prov: PRINCE GIBSON DO 05/06/20 Benzonatate (TESSALON PERLES) 100 Mg Capsule 200 MG PO TID, #30 CAP Prov: PRINCE GIBSON DO 05/06/20 Ondansetron (Ondansetron Odt) 4 Mg Tab.rapdis 4 MG PO Q4H for Nausea/Vomiting, #10 TAB Prov: PRINCE GIBSON DO 05/06/20 PRINCE GIBSON DO May 06, 2020 02:27
[2020-05-06 02:44] LABS: CHLORIDE 104 MMOL/L (98-107); POTASSIUM 4.1 MMOL/L (3.6-5.0); SODIUM 140 MMOL/L (135-145)
[2020-05-06 02:46] LABS: CALCIUM 8.8 MG/DL (8.5-10.1)
[2020-05-06 02:47] LABS: GLUCOSE 100 MG/DL (70-105); TOTAL PROTEIN 7.1 GM/DL (6.4-8.2)
[2020-05-06 02:48] LABS: CARBON DIOXIDE 24 MMOL/L (21-32)
[2020-05-06 02:49] LABS: BILIRUBIN,TOTAL 0.2 MG/DL (0.1-1.0)
[2020-05-06 02:50] LABS: ALKALINE PHOSPHATASE 80 U/L (40-136)
[2020-05-06 02:51] LABS: CREATININE SERUM 0.73 MG/DL (0.60-1.30); GFR ESTIMATED > 60
[2020-05-06 02:52] LABS: BUN/CREATININE RATIO 15
[2020-05-06 02:53] LABS: ALANINE AMINOTRANSFERASE 25 U/L (0-55)
[2020-05-06] MEDS ORDERED: ONDA4TAB11 PO (02:57)
[2020-05-06] MEDS ORDERED: BENZ100C18 PO (02:57)
[2020-05-06] MEDS ORDERED: FLUT9.9S NS (02:57)
[2020-05-06] MEDS ORDERED: LORA1TAB59 PO (02:57)
[2020-05-06] MEDS ORDERED: FLUT1DIS26 IH (02:57)
[2020-05-06 03:00] VITALS: BP 113/96
--- NOTE | 2020-05-06 07:57 | Diagnostic Imaging Report ---
INDICATION: Short of air, chest pain. Positive for COVID Upright portable chest shows normal heart size and vascularity. The lungs are clear. There is no effusion or pneumothorax. There is no bony abnormality. IMPRESSION: Normal chest with no change from 12/19/2016. Report was faxed to [facility] by jessica at 7:57am. Dictated by: Dictated on workstation # [id number]
== END 2020-05-06 03:02 | disposition home or self-care (01) ==
LOC: EDUNIT# 01:39 → ER 01:44
DX: U07.1 COVID-19 (principal); Z88.1 Allergy status to other antibiotic agents; Z82.49 Family history of ischemic heart disease and other diseases of the circulatory system; Z79.52 Long term (current) use of systemic steroids
CPT/HCPCS: 36415; 71045; 80053; 84145; 84703; 85025; 86308; 87430

== ENCOUNTER 2020-10-11 01:53 | Emergency (ER) | payer BC ==
[~2020-10-11] VITALS: Ht 157 cm; Wt 77.0 kg
[~2020-10-11 01:53] MED LIST changes: +BENZ100C18 PO; +FLUT1DIS26 IH; +FLUT9.9S NS; +LORA1TAB59 PO; +ONDA4TAB11 PO; -OXYC-471 PO; +OXYC1TAB11 PO
[2020-10-11] MEDS ORDERED: LIDOCAINE 1% INJ 20 ML 20 ML VIAL ONE (02:06)
[2020-10-11] MEDS ORDERED: LIDOCAINE 1% INJ 20 ML 20 ML VIAL INJ ONE (02:15)
--- NOTE | 2020-10-11 02:36 | ED Integumentary General ---
General Stated Complaint: GENITAL CYST Source: patient Exam Limitations: no limitations History of Present Illness Date Seen by Provider: Oct 11, 2020 Time Seen by Provider: 01:56 Initial Comments Patient is a 20-year-old female who presents to the emergency room with a complaint of a "cyst" on her vagina. Patient states that it has been there off and on for about a year intermittently gets larger and smaller. Patient states over the last several days it is gotten bigger and is created such discomfort that she cannot wear underwear. Patient states it is on the right side of her vagina. She denies any history of sexually transmitted infection and states that she was just recently tested at [facility]. She denies fevers, chills, dysuria, urgency or frequency. No abnormal vaginal discharge. All other review of systems reviewed and negative except as stated above. Timing/Duration: week, getting worse Severity: moderate Location: genitalia Possible Cause: no cause identified Associated Symptoms: denies symptoms Allergies and Home Medications Allergies Coded Allergies: amoxicillin (Verified Allergy, Unknown, 08/20/18) clavulanic acid (Verified Allergy, Unknown, 08/20/18) clindamycin (Verified Allergy, Unknown, 07/14/17) doxycycline (Verified Allergy, Unknown, 07/14/17) Home Medications Benzonatate 100 Mg Capsule, 200 MG PO TID Prescribed by: PRINCE GIBSON on 05/06/20256 Cefdinir 300 Mg Capsule, 300 MG PO BID Prescribed by: MARCELO LOUIS on 05/08/192011 Cefuroxime Axetil 500 Mg Tablet, 500 MG PO BID Prescribed by: PRINCE GIBSON on 08/20/18 001 Fluticasone Propionate 9.9 Ml [place].susp, 2 SPRAY NS DAILY 2 SPRAYS PER NOSTRIL DAILY X 2 DAYS THEN 1 SPRAY DAILY Prescribed by: PRINCE GIBSON on 05/06/20256 Fluticasone/Salmeterol 1 Each Blst.w.dev, 1 EACH IH BID Prescribed by: PRINCE GIBSON on 05/06/20256 Hyoscyamine Sulfate 0.125 Mg Tab.subl, 0.125 MG SL PRN PRN for PAIN-MODERATE (5- 7) Prescribed by: YINA HATHAWAY on 06/06/192120 Loratadine/Pseudoephedrine 1 Each Tab.er.12h, 1 EACH PO BID Prescribed by: PRINCE GIBSON on 05/06/20256 Ondansetron 4 Mg Tab.rapdis, 4 MG PO Q4H Prescribed by: PRINCE GIBSNO on 05/06/20256 Prednisone 20 Mg Tab, 40 MG PO DAILY Prescribed by: MARCELO LOUIS on 05/08/192011 Patient Home Medication List Home Medication List Reviewed: Yes Review of Systems Review of Systems Constitutional: see HPI EENTM: no symptoms reported Respiratory: no symptoms reported Cardiovascular: no symptoms reported Gastrointestinal: no symptoms reported Genitourinary: no symptoms reported Musculoskeletal: no symptoms reported Skin: other (Abscess/lesion to the right labia majora) All Other Systems Reviewed Negative Unless Noted: Yes Past Yhhfcjl-Xxyvrl-Idpmmw Hx Patient Social History Drug of Choice: THC 2nd Hand Smoke Exposure: No Recent Hopitalizations: No Immunizations Up To Date Tetanus Booster (TDap): Less than 5yrs PED Vaccines UTD: Yes Seasonal Allergies Seasonal Allergies: No Past Medical History Surgeries: Yes (RIGHT BREAST BIOPSY/BENIGN LUMPECTOMY) Adenoidectomy, Breast, Lumpectomy, Tonsillectomy Respiratory: No Cardiac: No Neurological: Yes (history of tickborne disease, elevated tularemia titer 2016) Reproductive Disorders: No Female Reproductive Disorders: Denies Sexually Transmitted Disease: No HIV/AIDS: No Genitourinary: No Gastrointestinal: No Musculoskeletal: No Endocrine: No HEENT: No Loss of Vision: Denies Hearing Impairment: Denies Cancer: No Psychosocial: Yes Anxiety Integumentary: No Blood Disorders: No Adverse Reaction/Blood Tranf: No (N/A) Family Medical History Hypertension GRANDMOTHER,MATERNAL Thyroid disease 19 MOTHER No Pertinent Family Hx Physical Exam Vital Signs Capillary Refill : General Appearance: WD/WN, no apparent distress Neck: full range of motion Cardiovascular: regular rate, rhythm Respiratory: no respiratory distress, no accessory muscle use Gastrointestinal: non tender, soft Extremities: normal range of motion, normal inspection Neurologic/Psychiatric: alert, normal mood/affect, oriented x 3 Skin: normal color, warm/dry Skin Problem Location: other (Patient has a 2 x 2 centimeter abscess at the inferior portion of the right labia majora. There is no open wound there. No overlying erythema. The lesion is fluctuant.) Skin Problem Character: abscess Procedures/Interventions I&D : Site: Right labia majora Blade Size: 11 I & D Procedure: betadine prep Progress Wound culture obtained Progress/Results/Core Measures Results/Orders My Orders Orders - MOUSTAPHA CAMP MD Lidocaine 1% Inj 20 Ml (Xylocaine 1% Inj (10/11/20 02:15) Wound Culture (10/11/20 02:05) Lidocaine 1% Inj 20 Ml (Xylocaine 1% Inj (10/11/20 02:06) Departure Impression Primary Impression: Labial abscess Disposition: 01 HOME, SELF-CARE Condition: Stable Departure-Patient Inst. Decision time for Depature: 03:00 Referrals: [facility]CECILIA DANGELO,LOCAL PHYSICIAN (PCP) Primary Care Physician Patient Instructions: Boil (DC) Add. Discharge Instructions: Keep the area clean dry and covered for the next 2 to 3 days. You should expect a fair amount of drainage from the area. Take the antibiotics, Bactrim, twice daily for the next 10 days. Finish this course of antibiotics please I have given you a prescription for hydrocodone. Take 1 every 6 hours as needed for severe pain. You can also take imjf-qrl-sjneuca ibuprofen, 3 tablets which is 600 mg every 6-8 hours. Always take ibuprofen with food. Warm soaks in the bathtub will help keep this area drained. If you have increasing pain or swelling to the area increasing redness or fever please come back to the emergency room for reevaluation. You can also follow-up with [facility]. Scripts Hydrocodone/Acetaminophen (Hydrocodone-Acetamin 5-325 mg) 1 Each Tablet 1 TAB PO Q6H PRN for PAIN-MODERATE (5-7), #10 TAB Prov: MOUSTAPHA CAMP MD 10/11/20 Sulfamethoxazole/Trimethoprim (Bactrim Ds Tablet) 1 Each Tablet 1 EACH PO BID, #20 TAB Prov: MOUSTAPHA CAMP MD 10/11/20 MOUSTAPHA CAMP MD Oct 11, 2020 02:36
[2020-10-11] MEDS ORDERED: SULF1TAB35 PO (03:02)
[2020-10-11] MEDS ORDERED: ACHD5005 PO (03:02)
[2020-10-11 03:20] VITALS: BP 135/78
== END 2020-10-11 03:20 | disposition home or self-care (01) ==
LOC: EDUNIT# 01:53 → ER 01:54
DX: N76.4 Abscess of vulva (principal); Z79.52 Long term (current) use of systemic steroids
CPT/HCPCS: 87070; 87205; 99284

== ENCOUNTER 2020-11-02 21:31 | Emergency (ER) | payer BC, OTHER ==
[~2020-11-02] VITALS: Ht 170 cm; Wt 77.0 kg
[~2020-11-02 21:31] MED LIST changes: +ACHD5005 PO; -SULF1TAB35 PO; +SULF1TAB38 PO
--- NOTE | 2020-11-02 21:47 | ED GU-Female ---
General Stated Complaint: POSITIVE TEST Source: patient History of Present Illness Date Seen by Provider: Nov 02, 2020 Time Seen by Provider: 21:43 Initial Comments PT ARRIVES VIA POV FROM HOME PT STATES JUST PRIOR TO ARRIVAL, SHE HAD A POSITIVE HOME TEST PT STATES SHE CAME STRAIGHT TO ER "FOR A SECOND OPINION AND FOR YOU TO TELL ME HOW FAR ALONG I AM" PT STATES SHE HAS NO IDEA WHEN LMP WAS--STATES "I NEVER KEEP TRACK" AND PT DOES NOT USE ANY CONTROL PT THINKS SHE HAS HAD A PERIOD IN THE LAST 1-2 MONTHS, THEN STATES "THE END OF SEPTEMBER" LAST INTERCOURSE 1 WEEK AGO PT HAS NO SYMPTOMS PCP: JANEEN Allergies and Home Medications Allergies Coded Allergies: amoxicillin (Verified Allergy, Unknown, 08/20/18) clavulanic acid (Verified Allergy, Unknown, 08/20/18) clindamycin (Verified Allergy, Unknown, 07/14/17) doxycycline (Verified Allergy, Unknown, 07/14/17) Home Medications Benzonatate 100 Mg Capsule, 200 MG PO TID Prescribed by: PRINCE GIBSON on 05/06/20256 Cefdinir 300 Mg Capsule, 300 MG PO BID Prescribed by: MARCELO LOUIS on 05/08/192011 Cefuroxime Axetil 500 Mg Tablet, 500 MG PO BID Prescribed by: PRINCE GIBSON on 08/20/18 001 Fluticasone Propionate 9.9 Ml [place].susp, 2 SPRAY NS DAILY 2 SPRAYS PER NOSTRIL DAILY X 2 DAYS THEN 1 SPRAY DAILY Prescribed by: PRINCE GIBSON on 05/06/20256 Fluticasone/Salmeterol 1 Each Blst.w.dev, 1 EACH IH BID Prescribed by: PRINCE GIBSON on 05/06/20256 Hydrocodone/Acetaminophen 1 Each Tablet, 1 TAB PO Q6H PRN for PAIN-MODERATE (5- 7) Prescribed by: MOUSTAPHA CAMP on 10/11/20301 Hyoscyamine Sulfate 0.125 Mg Tab.subl, 0.125 MG SL PRN PRN for PAIN-MODERATE (5- 7) Prescribed by: YINA HATHAWAY on 06/06/192120 Loratadine/Pseudoephedrine 1 Each Tab.er.12h, 1 EACH PO BID Prescribed by: PRINCE GIBSON on 05/06/20256 Ondansetron 4 Mg Tab.rapdis, 4 MG PO Q4H Prescribed by: PRINCE GIBSON on 05/06/20256 Prednisone 20 Mg Tab, 40 MG PO DAILY Prescribed by: MARCELO LOUSI on 05/08/192011 Sulfamethoxazole/Trimethoprim 1 Each Tablet, 1 EACH PO BID Prescribed by: MOUSTAPHA CAMP on 10/11/20 0302 Patient Home Medication List Home Medication List Reviewed: Yes Review of Systems Review of Systems Constitutional: no symptoms reported : Yes Past Dlgcuky-Bzntzj-Fwcius Hx Immunizations Up To Date Tetanus Booster (TDap): Less than 5yrs PED Vaccines UTD: Yes Seasonal Allergies Seasonal Allergies: No Past Medical History Surgeries: Yes (RIGHT BREAST BIOPSY/BENIGN LUMPECTOMY) Adenoidectomy, Breast, Lumpectomy, Tonsillectomy Respiratory: No Cardiac: No Neurological: Yes (history of tickborne disease, elevated tularemia titer 2016) Reproductive Disorders: No Female Reproductive Disorders: Denies Sexually Transmitted Disease: No HIV/AIDS: No Genitourinary: No Gastrointestinal: No Musculoskeletal: No Endocrine: No HEENT: No Loss of Vision: Denies Hearing Impairment: Denies Cancer: No Psychosocial: Yes Anxiety Integumentary: No Blood Disorders: No Adverse Reaction/Blood Tranf: No (N/A) Family Medical History Hypertension GRANDMOTHER,MATERNAL Thyroid disease 19 MOTHER No Pertinent Family Hx Physical Exam Vital Signs Vital Signs - First Documented 11/02/20 21:43 Temp 36.8 Pulse 88 Resp 18 B/P (MAP) 112/67 (82) Pulse Ox 98 O2 Delivery Room Air Capillary Refill : Height, Weight, BMI Height: 5'1.00" Weight: 150lbs. 0.0oz. 68.314281hl; 31.00 BMI Method:Stated General Appearance: WD/WN, no apparent distress Progress/Results/Core Measures Suspected Sepsis SIRS Temperature: Pulse: Respiratory Rate: Blood Pressure / Mean: Results/Orders Vital Signs/I&O 11/02/20 11/02/20 21:43 21:52 Temp 36.8 36.8 Pulse 88 88 Resp 18 18 B/P (MAP) 112/67 (82) 112/67 (82) Pulse Ox 98 98 O2 Delivery Room Air Capillary Refill : Progress Note : Progress Note ADVISED PT THAT ER IS NOT THE APPROPRIATE PLACE FOR "SECOND OPINIONS" AND ADVISED HER TO FOLLOW UP WITH [facility] THIS WEEK FOR FURTHER EVALUATION, AND SHE IS NOT HAVING ANY SYMPTOMS THERE IS NO INDICATION FOR ANY TESTS OF ANY KIND HERE TONIGHT. Departure Impression Primary Impression: Positive home test Disposition: HOME, SELF-CARE Condition: Stable Departure-Patient Inst. Decision time for Depature: 21:46 Referrals: [facility] Patient Instructions: How to Plan and Prepare for a Healthy Add. Discharge Instructions: FOLLOW UP WITH [facility] FOR FURTHER CARE PRINCE GIBSON DO Nov 02, 2020 21:47
[2020-11-02 21:52] VITALS: BP 112/67
== END 2020-11-02 21:52 | disposition home or self-care (01) ==
LOC: EDUNIT# 21:31 → ER 21:33
DX: Z32.01 Encounter for pregnancy test, result positive (principal); Z79.52 Long term (current) use of systemic steroids
CPT/HCPCS: 99281

== ENCOUNTER 2020-11-17 13:29 | Emergency (ER) | payer BC, OTHER ==
[~2020-11-17] VITALS: Ht 157 cm; Wt 77.0 kg
[2020-11-17 14:09] LABS: BASOPHILS % (AUTO) 1 % (0-10); EOSINOPHILS # (AUTO) 0.3 10^3/uL (0.0-0.3); EOSINOPHILS % (AUTO) 4 % (0-10); HEMATOCRIT 37 % (35-52); HEMOGLOBIN 12.3 g/dL (11.5-16.0); LYMPHOCYTES # (AUTO) 2.4 10^3/uL (1.0-4.0); LYMPHOCYTES % (AUTO) 31 % (12-44); MEAN CORPUSCULAR HEMOGLOBIN 27 pg (25-34); MEAN CORPUSCULAR HGB CONC 33 g/dL (32-36); MEAN CORPUSCULAR VOLUME 83 fL (80-99); MEAN PLATELET VOLUME 9.6 fL (9.0-12.2); MONOCYTES # (AUTO) 0.6 10^3/uL (0.0-1.0); MONOCYTES % (AUTO) 8 % (0-12); NEUTROPHILS # (AUTO) 4.3 10^3/uL (1.8-7.8); NEUTROPHILS % (AUTO) 56 % (42-75); PLATELET COUNT 254 10^3/uL (130-400); WHITE BLOOD COUNT 7.7 10^3/uL (4.3-11.0)
[2020-11-17 14:54] LABS: BILIRUBIN,URINE NEGATIVE (NEGATIVE); CLARITY,URINE CLEAR; COLOR,URINE YELLOW; GLUCOSE, URINE (UA) NEGATIVE (NEGATIVE); KETONES,URINE NEGATIVE (NEGATIVE); LEUKOCYTE ESTERASE ,URINE TRACE (NEGATIVE); NITRITE,URINE NEGATIVE (NEGATIVE); PH,URINE 7.5 (5-9); PROTEIN,URINE NEGATIVE (NEGATIVE)
--- NOTE | 2020-11-17 15:07 | Diagnostic Imaging Report ---
INDICATION: 1st trimester bleeding Examination shows a single ovoid intrauterine gestational sac. pole is seen with a crown-rump length corresponding to 7 weeks 1 day plus/minus 1 week. Cardiac activity is seen with a rate of 141 bpm. Yolk sac is seen. No gestational, perigestational hemorrhage is evident. There is blood flow to the ovaries with no adnexal mass or free fluid. IMPRESSION: There is a single live intrauterine of 7 weeks 1 day plus/minus 1 week with no abnormality seen at this time. Dictated by: Dictated on workstation # [id number]
[2020-11-17 15:08] LABS: AMORPHOUS SEDIMENT,UR MOD AMOR PHOSPHATE /LPF; BACTERIA,URINE MODERATE /HPF; SQUAMOUS EPITHELIAL CELL,UR 25-50 /HPF
[2020-11-17 15:20] VITALS: BP 127/79
--- NOTE | 2020-11-17 15:21 | ED GU-Female ---
General Chief Complaint: OB < 20 WEEKS Stated Complaint: 7 WKS PREG-VAGINAL BLEEDING/CRAMPING Nursing Triage Note: AMB TO ROOM REPORTS IS APX 7 WEEKS PREG FOR 3 WEEKS HAS HAD ABD PAIN TODAY STARTED MORE WITH CRAMPING AND VAG BLEEDNG. HAS HAD SONO AT [facility] AND WAS TOLD BABY IN UTERUS. Source: patient, other ([facility] clinic staff) Exam Limitations: no limitations History of Present Illness Date Seen by Provider: Nov 19, 2020 Time Seen by Provider: 13:37 Initial Comments This 20-year-old young lady presents to the emergency room with about 2 days of cramping at 7 weeks gestational age. Today while she was being evaluated at the [facility] she developed vaginal bleeding. Discussion with the clinic staff reveals that she has a confirmed intrauterine by prior ultrasound with a sac in the uterus. Ultrasound today was aborted as patient was having bleeding and she was referred to the ER or her physician for diagnostic work-up. She denies any other urinary or vaginal symptoms. Cramping has been minimal. She has not yet seen an obstetrical provider for this . Allergies and Home Medications Allergies Coded Allergies: amoxicillin (Verified Allergy, Unknown, 08/20/18) clavulanic acid (Verified Allergy, Unknown, 08/20/18) clindamycin (Verified Allergy, Unknown, 07/14/17) doxycycline (Verified Allergy, Unknown, 07/14/17) Home Medications Benzonatate 100 Mg Capsule, 200 MG PO TID Prescribed by: PRINCE GIBSON on 05/06/20256 Cefdinir 300 Mg Capsule, 300 MG PO BID Prescribed by: MARCELO LOUIS on 05/08/192011 Cefuroxime Axetil 500 Mg Tablet, 500 MG PO BID Prescribed by: PRINCE GIBSON on 08/20/18 001 Fluticasone Propionate 9.9 Ml [place].susp, 2 SPRAY NS DAILY 2 SPRAYS PER NOSTRIL DAILY X 2 DAYS THEN 1 SPRAY DAILY Prescribed by: PRINCE GIBSON on 05/06/20256 Fluticasone/Salmeterol 1 Each Blst.w.dev, 1 EACH IH BID Prescribed by: PRINCE GIBSON on 05/06/20256 Hydrocodone/Acetaminophen 1 Each Tablet, 1 TAB PO Q6H PRN for PAIN-MODERATE (5- 7) Prescribed by: MOUSTAPHA CAMP on 10/11/20301 Hyoscyamine Sulfate 0.125 Mg Tab.subl, 0.125 MG SL PRN PRN for PAIN-MODERATE (5- 7) Prescribed by: YINA HATHAWAY on 06/06/192120 Loratadine/Pseudoephedrine 1 Each Tab.er.12h, 1 EACH PO BID Prescribed by: PRINCE GIBSON on 05/06/20256 Ondansetron 4 Mg Tab.rapdis, 4 MG PO Q4H Prescribed by: PRINCE GIBSON on 05/06/20256 Prednisone 20 Mg Tab, 40 MG PO DAILY Prescribed by: MARCELO LOUIS on 05/08/192011 Sulfamethoxazole/Trimethoprim 1 Each Tablet, 1 EACH PO BID Prescribed by: MOUSTAPHA CAMP on 10/11/20301 Patient Home Medication List Home Medication List Reviewed: Yes Review of Systems Review of Systems Constitutional: no symptoms reported EENTM: no symptoms reported Respiratory: no symptoms reported Cardiovascular: no symptoms reported Gastrointestinal: no symptoms reported Genitourinary: see HPI : Yes Musculoskeletal: no symptoms reported Skin: no symptoms reported Psychiatric/Neurological: No Symptoms Reported Endocrine: No Symptoms Reported Past Kdyfpzn-Qudlgr-Viwqak Hx Patient Social History Substance use?: No Immunizations Up To Date Tetanus Booster (TDap): Less than 5yrs PED Vaccines UTD: Yes Seasonal Allergies Seasonal Allergies: No Past Medical History Surgeries: Yes (RIGHT BREAST BIOPSY/BENIGN LUMPECTOMY) Adenoidectomy, Breast, Lumpectomy, Tonsillectomy Respiratory: No Cardiac: No Neurological: Yes (history of tickborne disease, elevated tularemia titer 2016) Last Menstrual Period: August 22, 2020 Reproductive Disorders: No Female Reproductive Disorders: Denies Sexually Transmitted Disease: No HIV/AIDS: No Genitourinary: No Gastrointestinal: No Musculoskeletal: No Endocrine: No HEENT: No Loss of Vision: Denies Hearing Impairment: Denies Cancer: No Psychosocial: Yes Anxiety Integumentary: No Blood Disorders: No Adverse Reaction/Blood Tranf: No (N/A) Family Medical History Hypertension GRANDMOTHER,MATERNAL Thyroid disease 19 MOTHER No Pertinent Family Hx Physical Exam Vital Signs Vital Signs - First Documented 11/17/20 13:36 Temp 36.0 Pulse 93 Resp 18 B/P (MAP) 127/79 (95) Pulse Ox 99 O2 Delivery Room Air Capillary Refill : Less Than 3 Seconds Height, Weight, BMI Height: 5'1.00" Weight: 150lbs. 0.0oz. 68.847198mp; 31.00 BMI Method:Stated General Appearance: WD/WN HEENT: normal ENT inspection Cardiovascular: regular rate, rhythm, no edema Respiratory: lungs clear, normal breath sounds, no respiratory distress Gastrointestinal: non tender, soft Extremities: normal inspection, no pedal edema Neurologic/Psychiatric: alert, normal mood/affect, oriented x 3 Progress/Results/Core Measures Suspected Sepsis SIRS Temperature: Pulse: 93 Respiratory Rate: 18 Laboratory Tests 11/17/20 13:50: White Blood Count 7.7 Blood Pressure 127 /79 Mean: 95 Laboratory Tests 11/17/20 13:50: Platelet Count 254 Results/Orders Lab Results Laboratory Tests Test 11/17/20 13:50 11/17/20 14:48 Range/Units White Blood Count 7.7 4.3-11.0 10^3/uL Red Blood Count 4.51 3.80-5.11 10^6/uL Hemoglobin 12.3 11.5-16.0 g/dL Hematocrit 37 35-52 % Mean Corpuscular Volume 83 80-99 fL Mean Corpuscular Hemoglobin 27 25-34 pg Mean Corpuscular Hemoglobin Concent 33 32-36 g/dL Red Cell Distribution Width 13.2 10.0-14.5 % Platelet Count 254 130-400 10^3/uL Mean Platelet Volume 9.6 9.0-12.2 fL Immature Granulocyte % (Auto) 1 % Neutrophils (%) (Auto) 56 42-75 % Lymphocytes (%) (Auto) 31 12-44 % Monocytes (%) (Auto) 8 0-12 % Eosinophils (%) (Auto) 4 0-10 % Basophils (%) (Auto) 1 0-10 % Neutrophils # (Auto) 4.3 1.8-7.8 10^3/uL Lymphocytes # (Auto) 2.4 1.0-4.0 10^3/uL Monocytes # (Auto) 0.6 0.0-1.0 10^3/uL Eosinophils # (Auto) 0.3 0.0-0.3 10^3/uL Basophils # (Auto) 0.0 0.0-0.1 10^3/uL Immature Granulocyte # (Auto) 0.0 0.0-0.1 10^3/uL Human Chorionic Gonadotropin, Quant [id number] H <5 MIU/ML Urine Color YELLOW Urine Clarity CLEAR Urine pH 7.5 5-9 Urine Specific [place] 1.020 1.016-1.022 Urine Protein NEGATIVE NEGATIVE Urine Glucose (UA) NEGATIVE NEGATIVE Urine Ketones NEGATIVE NEGATIVE Urine Nitrite NEGATIVE NEGATIVE Urine Bilirubin NEGATIVE NEGATIVE Urine Urobilinogen 1.0 < = 1.0 MG/DL Urine Leukocyte Esterase TRACE H NEGATIVE Urine RBC (Auto) 3+ H NEGATIVE Urine RBC 2-5 H /HPF Urine WBC 2-5 /HPF Urine Squamous Epithelial Cells 25-50 H /HPF Urine Crystals PRESENT H /LPF Urine Amorphous Sediment MOD PAUL PHOSPHATE H /LPF Urine Bacteria MODERATE H /HPF Urine Casts NONE /LPF Urine Mucus NEGATIVE /LPF Urine Culture Indicated YES Micro Results Microbiology 11/17/20 Urine Culture - Final, Complete NO GROWTH My Orders Orders - PADMINI CLAIRE MD Cbc With Automated Diff (11/17/20 13:37) Ua Culture If Indicated (11/17/20 13:37) Hcg,Quantitative (11/17/20 13:54) Us Ob Transvaginal [id number] (11/17/20 13:54) Urine Culture (11/17/20 14:48) Vital Signs/I&O Capillary Refill : Less Than 3 Seconds Blood Pressure Mean: 95 Progress Note : Progress Note Labs and ultrasound were unremarkable. Patient has a positive Rh status and does not need RhoGam. Diagnostic Imaging Diagonstic Imaging: Ultrasound Plain Films/CT/US/NM/MRI: pelvis Comments NAME: CAROLYN FOUNTAIN Rosemarie [facility] REC#: [id number] PT STATUS: REG ER : 2000 PHYSICIAN: PADMINI CLAIRE MD ADMIT DATE: 11/17/20/ER Signed Date of Exam:11/17/20 US OB TRANSVAGINAL [id number] INDICATION: 1st trimester bleeding Examination shows a single ovoid intrauterine gestational sac. pole is seen with a crown-rump length corresponding to 7 weeks 1 day plus/minus 1 week. Cardiac activity is seen with a rate of 141 bpm. Yolk sac is seen. No gestational, perigestational hemorrhage is evident. There is blood flow to the ovaries with no adnexal mass or free fluid. IMPRESSION: There is a single live intrauterine of 7 weeks 1 day plus/minus 1 week with no abnormality seen at this time. Dictated by: Dictated on workstation # [id number] Dict: 11/17/20 1455 Trans: 11/17/20 1509 [facility] [id number] Interpreted by: DON WHALEY MD Electronically signed by: DON WHALEY MD 11/17/20 1509 Departure Impression Primary Impression: Vaginal bleeding during Disposition: HOME, SELF-CARE Condition: Improved Departure-Patient Inst. Decision time for Depature: 15:20 Referrals: NO,LOCAL PHYSICIAN (PCP/Family) Primary Care Physician Patient Instructions: Bleeding In Early Add. Discharge Instructions: Observe vaginal rest. This includes no intercourse, tampons, or anything else inserted vaginally. Follow-up with your obstetrical provider soon as possible. Return to care if you have worsening symptoms including escalating pain or escalating bleeding. Call with questions or concerns. All discharge instructions reviewed with patient and/or family. Voiced understanding. Copy Copies To 1: CHRISTOPH MADDEN JOSHUA T MD Nov 17, 2020 15:21
== END 2020-11-17 15:29 | disposition home or self-care (01) ==
LOC: EDUNIT# 13:29 → ER 13:31
DX: O20.9 Hemorrhage in early pregnancy, unspecified (principal); Z88.1 Allergy status to other antibiotic agents; Z3A.01 Less than 8 weeks gestation of pregnancy
CPT/HCPCS: 36415; 76817; 81000; 84702; 85025; 87088